=== PATIENT | male | born 1950 | race Caucasian/White ===

== ENCOUNTER 2018-07-29 10:07 | Outpatient (CLI) | payer BC ==
--- NOTE | 2018-07-29 11:26 | RAD ---
LUMBAR SPINE 2 VIEWS: INDICATION: Low back pain for 5 days. FINDINGS: There is levoscoliosis of the lumbar spine centered at L3. There is mild multilevel degenerative dis k disease. There are mild vascular calcifications involving the abdominal aorta. Vertebral body hei ghts and spinal alignment on the lateral projection appears within normal limits. IMPRESSION: Mild levoscoliosis and mild degenerative disk disease of the lumbar spine. POS: ANA
== END 2018-07-29 10:08 | disposition home or self-care (01) ==
LOC: TBSIIMAG 10:07
PROVIDERS: ATTEND Neurological Surgery
DX: M54.5 Low back pain (principal); M51.36 Other intervertebral disc degeneration, lumbar region; M41.9 Scoliosis, unspecified
CPT/HCPCS: 72100

== ENCOUNTER 2022-07-24 15:56 | Outpatient (CLI) | payer BC ==
[2022-07-24 16:49] LABS: Bilirubin Neg (Negative); Blood, Urine Negative (Negative); Clarity Clear (Clear); Glucose, Urine (Dipstick) Normal (Negative); Ketone, Urine Negative (Negative); Leukocyte Negative (Negative); Nitrite Negative (Negative); Protein, Urine (Dipstick) Negative (Neg-Trace); Urobilinogen Normal mg/dL (Less than 2)
[2022-07-24 16:55] LABS: Mean Corpuscular HGB CONC 34.4 g/dL (32.0-36.0); Mean Corpuscular Volume 84.3 fl (81.2-95.1); Mean Platelet Volume 10.3 fl (7.4-10.4); Platelet Count 238 10x3/uL (150-450); Red Blood Cell (RBC) Count 4.83 10x6/uL (4.32-5.72); White Blood Cell (WBC) Count 6.7 10x3/uL (3.5-10.5)
[2022-07-24 17:11] LABS: INR-International Normal Ratio 0.9; PTT 23.1 sec (22.0-33.0); Prothrombin Time 9.9 sec (9.5-12.1)
[2022-07-24 17:17] LABS: Anion Gap 15 mmol/L (10-20); BUN (Urea Nitrogen) 12 mg/dL (8.4-25.7); Calc. Creatinine Clearance 0 mL/min (70-130); Calcium 9.7 mg/dL (7.8-10.44); Carbon Dioxide 27 mmol/L (23-31); Chloride 105 mmol/L (98-107); Estimated GFR 93; Glucose 103 mg/dL (80-115); Potassium 4.9 mmol/L (3.5-5.1); Sodium 142 mmol/L (136-145)
[2022-07-24 17:33] LABS: Bacteria/HPF None Seen HPF (None Seen); RBC/HPF 0-3 HPF (0-3); Squamous Epithelial None Seen HPF (0-3); WBC/HPF 0-3 HPF (0-3)
== END 2022-07-24 15:57 | disposition home or self-care (01) ==
LOC: LABBT 15:56
PROVIDERS: ATTEND Urology
DX: Z01.818 Encounter for other preprocedural examination (principal); N40.1 Benign prostatic hyperplasia with lower urinary tract symptoms; I25.10 Atherosclerotic heart disease of native coronary artery without angina pectoris; R97.20 Elevated prostate specific antigen [PSA]; R73.03 Prediabetes; N52.9 Male erectile dysfunction, unspecified; R30.0 Dysuria; N35.911 Unspecified urethral stricture, male, meatal; Z79.01 Long term (current) use of anticoagulants; Z95.1 Presence of aortocoronary bypass graft
CPT/HCPCS: 71046; 80048; 81001; 84153; 85027; 85610; 85730; 87086; 93005; 93010

== ENCOUNTER 2022-08-09 06:33 | Day surgery (SDC) | payer BC, MEDICARE ==
[2022-08-01 15:25] VITALS: BMI 31.0
[2022-08-09] MEDS ORDERED: Levofloxacin 500 mg/D5W 100 ml Premix Bag ONE (07:04)
[2022-08-09] MEDS ORDERED: fentaNYL PF 100 MCG/2 ML SYRINGE ONE (08:25)
[2022-08-09] MEDS ORDERED: Iopamidol 15 ML ONE (08:30)
[2022-08-09] MEDS ORDERED: cefTRIAXone\\ROCEPHIN 2 GM VIAL ONE (08:33)
[2022-08-09] MEDS ORDERED: Sodium Chloride 0.9% 100 ML ONE (08:33)
[2022-08-09] MEDS ORDERED: Lidocaine 1% PF 5 ML VIAL ONE (08:52)
[2022-08-09] MEDS ORDERED: PROPOFOL 200 MG/20 ML VIAL ONE (08:52)
[2022-08-09] MEDS ORDERED: Dexamethasone 20 MG/5 ML VIAL ONE (08:52)
[2022-08-09] MEDS ORDERED: Ondansetron PF 4 MG/2 ML Vial ONE (08:52)
[2022-08-09] MEDS ORDERED: Phenazopyridine HCl 100 MG TAB ONE (09:37)
== END 2022-08-09 11:42 | disposition home or self-care (01) ==
LOC: SDC 06:33
PROVIDERS: ATTEND Urology
DX: C61 Malignant neoplasm of prostate (principal); N40.1 Benign prostatic hyperplasia with lower urinary tract symptoms; N35.911 Unspecified urethral stricture, male, meatal; N32.89 Other specified disorders of bladder; I10 Essential (primary) hypertension; E78.5 Hyperlipidemia, unspecified; I25.10 Atherosclerotic heart disease of native coronary artery without angina pectoris; I48.91 Unspecified atrial fibrillation; I25.2 Old myocardial infarction; M10.9 Gout, unspecified; Z79.02 Long term (current) use of antithrombotics/antiplatelets; Z79.620 Long term (current) use of immunosuppressive biologic; Z79.84 Long term (current) use of oral hypoglycemic drugs; Z79.899 Other long term (current) drug therapy; Z95.1 Presence of aortocoronary bypass graft
CPT/HCPCS: G0416; J0696; J1100; J1956; J2405; J2704; J3490; Q9967